=== PATIENT | female | born 1995 | race Caucasian/White ===

== ENCOUNTER 2016-08-19 00:17 | Emergency (ER) | payer BC ==
[~2016-08-19] VITALS: Ht 157.5 cm; Wt 70.0 kg
[~2016-08-19 00:17] MED LIST: GABA600T PO
[2016-08-19] MEDS ORDERED: LISD70CA PO (00:28)
[2016-08-19] MEDS ORDERED: ONDANSETRON 4MG OD TAB PO ONE (00:30)
[2016-08-19 00:40] VITALS: TEMP 36.4; Ht 157.5 cm; Wt 70.0 kg
[2016-08-19 00:59] LABS: BUN/CREATININE RATIO 21.5 (10-20); CALCIUM 8.9 mg/dl (8.5-10.1); CREATININE 0.64 mg/dl (0.60-1.20); POTASSIUM 3.4 mmol/L (3.5-5.1)
[2016-08-19 01:02] LABS: PREG INTERNAL NEGATIVE QC NEG CLEAR BACKGROUND; PREG INTERNAL POSITIVE QC POS CONTROL LINE
[2016-08-19 05:31] VITALS: BP 96/56; PULSE 84; O2SAT 98
--- NOTE | 2016-08-19 05:57 | EMERGENCY ROOM VISIT NOTE ---
ED Visit Note First contact with patient: 00:19 CHIEF COMPLAINT: Altered mental status from Alcohol overdose HISTORY OF PRESENT ILLNESS: This 20 year old female patient presents to the emergency department via ambulance for evaluation of altered mental status, presumably from alcohol intoxication. The patient was evidently [place] a bar, when she began feeling nauseated and anxious. She contacted EMS, and presents to the emergency department for evaluation. The patient does not have significant pain or tenderness. She does not have concern for assault or sexual assault. No falls reported. She considers herself usually healthy and does not have other complaints. She feels comfortable now that she is here in the emergency department. REVIEW OF SYSTEMS: Review of systems was somewhat limited secondary to patient' s presumed alcohol intoxication status. Review of systems was performed to the best of our ability and reperformed as the patient began to sober up. All other systems were reviewed and are negative. ALLERGIES: See EMR MEDICATIONS: See EMR PMH: No chronic medical disease SOCIAL HISTORY: Student who lives locally PHYSICAL EXAM VITALS: Vitals are noted on the nurse's note and reviewed by myself. Vital signs stable. GENERAL: White female, who is in no acute distress and resting comfortably. Patient is visibly altered and smells of alcohol. HEAD: Normocephalic atraumatic. EARS: External ear normal. External auditory canals clear, tympanic membranes pearly mcnair without erythema or effusion bilaterally. EYES: Pupils equal round and reactive to light and accommodation. Conjunctivae without injection, sclerae without icterus. Extraocular movements intact. NOSE: Patent, turbinates without inflammation or discharge. MOUTH: Mucous membranes moist. Tonsils are not enlarged. Pharynx without erythema, blood, vomitus, or exudate. Uvula midline. Airway patent. NECK: Supple without nuchal rigidity. No lymphadenopathy. Cervical spine is nontender. HEART: Regular rate and rhythm without murmurs gallops or rubs. LUNGS: Clear to auscultation bilaterally without wheezes, rales or rhonchi. No retractions or accessory muscle use. ABDOMEN: Positive normal bowel sounds x 4. Soft, nontender, without masses or organomegaly. No guarding or rebound tenderness. MUSCULOSKELETAL: No muscle atrophy, erythema, or edema noted. Gross motor function intact to all extremities. NEURO: Patient was alert to person but not place or time. They appear with altered mental status. SKIN: The skin was without rashes, erythema, edema, or bruising. No Tenting of the skin. EMERGENCY DEPARTMENT COURSE: Physical exam and history was performed. Nursing notes and EMR were reviewed. The patient appears to be altered on my examination. I suspect this is from an alcohol overdose. Conservative care measures and aspiration precautions were instituted. The patient was placed on court recording monitor and watched during the patient's stay. She was given 4 mg Zofran ODT. Blood work was obtained and was reviewed. The patient's blood alcohol level was 164. This appears to be the primary cause of the altered status. Patient was reevaluated multiple times throughout the course of their emergency department stay. Over time the patient did sober up and was able to talk, walk , and drink fluids without difficulty. The patient was felt stable for discharge home. The patient was given alcohol intoxication handouts. The patient was discharged home in stable condition with a sober ride. Differential diagnosis: Etiologies such as alcohol intoxication, metabolic, infection, hypoglycemia, electrolyte abnormalities, cardiac sources, intracerebral event, toxicologic, neurologic, as well as others were entertained. DIAGNOSIS: Acute alcohol intoxication Current/Historical Medications Scheduled Lisdexamfetamine Dimesylate (Vyvanse), 70 MG PO DAILY Allergies Coded Allergies: No Known Allergies (Unverified , 08/19/16) Vital Signs Date Time Temp Pulse Resp B/P Pulse Ox O2 Delivery O2 Flow Rate FiO2 08/19/16 05:31 84 20 96/56 98 Room Air 08/19/16 05:30 85 22 98 Room Air 08/19/16 05:00 81 18 117/54 97 Room Air 08/19/16 04:30 82 22 99/48 97 Room Air 08/19/16 04:06 105 08/19/16 04:00 85 24 108/62 99 Room Air 08/19/16 03:58 91 18 113/59 99 Room Air 08/19/16 01:47 89 100 08/19/16 01:17 80 18 100 08/19/16 00:47 64 18 98 08/19/16 00:40 36.4 70 18 117/71 98 Room Air 08/19/16 00:40 Room Air 08/19/16 00:40 Room Air 08/19/16 00:25 82 08/19/16 00:24 117/71 Laboratory Results 08/19/16 00:26 Test 08/19/16 00:26 Anion Gap 13.0 mmol/L (3-11) Est Creatinine Clear Calc Drug Dose 127.5 ml/min Estimated GFR () 147.8 Estimated GFR (Non- 127.6 BUN/Creatinine Ratio 21.5 (10-20) Calcium Level 8.9 mg/dl (8.5-10.1) Human Chorionic Gonadotropin, Qual NEG (NEG) Ethyl Alcohol mg/dL 164.0 mg/dl (0-3) Departure Information Patient Instructions My [facility]
== END 2016-08-19 06:12 | disposition home or self-care (01) ==
LOC: EDBD 00:17 → C.EDB 00:18
DX: F10.129 Alcohol abuse with intoxication, unspecified (principal)